=== PATIENT | male | born 1975 | race Hispanic/Latino ===

== ENCOUNTER 2018-12-12 14:02 | Observation (INO) | payer BC, OTHER ==
[~2018-12-12 14:02] MED LIST: Ketorolac Tromethamine 30 MG/ML VIAL ONE; Lidocaine 1% PF 5 ML VIAL ONE; Ondansetron PF 4 MG/2 ML Vial ONE; PROPOFOL 200 MG/20 ML VIAL ONE
[2018-12-12] MEDS ORDERED: Adacel (T-DAP) 0.5 ML SYRINGE ONE (14:11)
[2018-12-12] MEDS ORDERED: Morphine 4 MG/ML VIAL ONE (15:39)
[2018-12-12] MEDS ORDERED: Morphine 2 MG/ML SYRINGE ONE ×2 (15:39→19:57)
--- NOTE | 2018-12-12 15:39 | RAD ---
3 VIEWS LEFT HAND: Date: 12/12/18 HISTORY: Left thumb got stuck in machine at work and thumb came off. FINDINGS: Three views of the left hand shows amputation of the tip of the thumb just distal to the interphalang eal joint of the thumb through the distal phalanx. No degenerative changes are seen. IMPRESSION: Amputation of the thumb through the distal phalanx. POS: [facility]
[2018-12-12] MEDS ORDERED: Gentamicin 80 MG/2 ML VIAL ONE (17:49)
[2018-12-12] MEDS ORDERED: CEFAZOLIN 1 GM VIAL ONE (17:49)
[2018-12-12] MEDS ORDERED: Gentamicin Sulfate 80 MG in Premix Bag 1 BAG IVPB SCH (18:30)
[2018-12-12] MEDS ORDERED: Midazolam HCl 2 mg/2 ml Vial ONE ×2 (19:56→21:11)
[2018-12-12 20:55] LABS: Amphetamine Not Detected (NotDetected); Barbiturates Screen Not Detected (NotDetected); Benzodiazepine Screen Not Detected (NotDetected); Cocaine Metabolite Screen Not Detected (NotDetected); Medtox Control Line Valid? VALID (VALID); Medtox Reader # READER 4; Methadone Not Detected (NotDetected); Methamphetamine Not Detected (NotDetected); Opiate Screen Detected (NotDetected); Oxycodone Screen Not Detected (NotDetected); Phencyclidine (PCP) Not Detected (NotDetected); THC/Cannabinoid Screen Not Detected (NotDetected); Tricyclic Screen Not Detected (NotDetected)
[2018-12-12] MEDS ORDERED: Fentanyl 100 MCG/2 ML VIAL ONE (21:11)
[2018-12-12] MEDS ORDERED: Sodium Chloride 0.9% 30 ML ONE (21:42)
[2018-12-12] MEDS ORDERED: Bacitracin Zinc Ointment 30 gm TUBE ONE (21:54)
[2018-12-12] MEDS ORDERED: Betamet Acet/Betamet Na Ph 30 MG/5 ML VIAL ONE (21:54)
[2018-12-12] MEDS ORDERED: Bupivacaine PF 0.5% 30 ML VIAL ONE (21:54)
[2018-12-12] MEDS ORDERED: Ondansetron PF 4 MG/2 ML Vial IV PRN (23:07)
[2018-12-12] MEDS ORDERED: Morphine 4 MG/ML VIAL SLOW IVP PRN (23:07)
[2018-12-12] MEDS ORDERED: Bisacodyl 10 MG SUPP PR PRN (23:07)
[2018-12-12] MEDS ORDERED: traMADol HCl 50 MG TAB PO PRN (23:07)
[2018-12-12] MEDS ORDERED: Milk Of Magnesia 30 ML UDCUP PO PRN (23:07)
[2018-12-12] MEDS ORDERED: HYDROcodone/Acetaminophen 5/325 mg Tablet PO PRN (23:07)
[2018-12-12] MEDS ORDERED: Meperidine HCl/PF 25 MG/ML VIAL IM PRN (23:09)
[2018-12-12] MEDS ORDERED: Ketorolac Tromethamine 30 MG/ML VIAL IVP PRN (23:09)
[2018-12-12] MEDS ORDERED: Communication Order-Pharmacy FS SCH (23:15)
[2018-12-13] MEDS: Ketorolac Tromethamine 30 MG/ML VIAL IVP SCH ×3 (00:31→11:47)
[2018-12-13 02:20] VITALS: BMI 25.1
[2018-12-13] MEDS: Vancomycin HCl 1 GM in Premix Bag 1 BAG IVPB SCH ×2 (02:21→02:24)
[2018-12-13] MEDS ORDERED: Vancomycin HCl 1 GM in Premix Bag 1 BAG IVPB SCH ×2 (02:30→14:00)
[2018-12-13] MEDS: Acetaminophen/Codeine 30-300mg Tablet PO PRN ×2 (05:19→11:51)
[2018-12-13] MEDS ORDERED: TETANUS AND DIPHTHERIA TOX/PF 0.5 ML DISP.SYRIN IM SCH (09:00)
[2018-12-13] MEDS ORDERED: Aspirin 81 mg Enteric Coated Tablet PO SCH (09:00)
[2018-12-13 16:47] VITALS: BP 108/68; TEMP 98.8
--- NOTE | 2018-12-15 14:02 | OP ---
DATE OF PROCEDURE: 12/12/2018 PREOPERATIVE DIAGNOSES: 1. Open amputation with distal phalanx fracture base of the nail bed with the amputation line actually going through the germinal matrix and slightly more proximal palmarly. 2. Marked contamination with string sign in the amputated part. PROCEDURES PERFORMED: 1. Debridement of material associated with open fracture. 2. Debridement of wound. 3. Creation of fasciocutaneous flap. 4. Full thickness skin graft harvested from the amputated part after it was cleaned and debrided and thinned to almost a partial thickness graft. 5. Application of short-arm splint. INDICATIONS: Patient was involved in an accident with a saw while at work. Although he reports this is worker's compensation, he came in with a digit completely amputated with a fracture seen on the radiographs at the base of the distal phalanx which was on the attached side 4 mm in width. He had flexion and extension of this attached part, he had marked contamination of the distal part and thus it was felt that completion of amputation with coverage after debridement would be indicated more so than replantation. DESCRIPTION OF PROCEDURE: After successful general LMA technique, the limb was prepped and draped. Time-out was done appropriately. We then began to inspect the wound and found that the patient had indeed marked contamination of the amputated part in spite three different solutions, we could only minimally clean, so we could not replant this and the patient had a small string side in one arterial in the vascular tree. For this reason, it was decided to debride the material associated with open fracture but not shorten the bone, created fasciocutaneous flap of fat that could be rotated dorsally approximately 5 to 6 mm to connect to the fascia over the bone, and then put a skin graft harvested from the amputated part. This was done in sequence listed above after debridement of material associated with open fracture to include curette, tenotomy scissors, Adson's, 11 blade knife, and high-speed 3 L normal saline and Pulsavac with antibiotics inside, we cleaned the retained part. The distal part/amputated part, used 3 different solutions of 1/3 normal saline with antibiotics inside to 1/3 Betadine, and 1/3 chlorhexadine. Each went to a differential soaking of 15 minutes which was then thinned and cut to appropriate size to match up the reconstructed wound. Once this was done, the patient had no evidence of contamination whatsoever in the still attached portion of the thumb. We covered all bone ends after we had debrided any material associated with the open fracture. The open treatment of fracture was covered with this flap. Fasciocutaneous flap had good circulation, and then we finished harvesting, the triple solution cleaned, amputated part of skin on the palmar aspect in its midportion and then thinned this as much as possible where there was only minimal epidermis left with two slits made. We then placed two bolstered sutures with 3-0 nylon, two dorsal, two palmar with one set radial, one set ulnar to the midline. We then tied this to hold the graft in place and then secured the graft with a running 5-0 synthetic suture. Then, the digit was pink, we could see blood with tourniquet deflated underneath the graft site, two slits were given excellent drainage. We then bolstered this by placing a sleeve the same sized with [address] around circumferentially greater in each diameter with the . The wound was now completely covered, there was no donor site from the amputated part. It was cleaned before it was attached, then it was bolstered, bacitracin and normal saline, a mineral oil soaked gauze, and we tied the two individual 3-0 nylons in a crisscrossing pattern and was well secured with bolster. Then, we placed a soft tissue dressing, 4x4s, a Kerlix on the amputated thumb part. Followed this with a thumb spica splint and then the patient left the operating room with no evidence of anesthetic or operative complication. Job ID: [id number]
--- NOTE | 2018-12-22 05:42 | PQF ---
[facility] POST DISCHARGE CLINICAL DOCUMENTATION IMPROVEMENT CLARIFICATION FORM l Todays Date: 12/03/18 l Patients Name ADRIENNE ZURITA l l Admit Date 12/12/18 l Disch Date 12/12/18 Pharmaceutical Development Technician Name Toribio Jimenez Email: [email or web address] Cell: [phone] To be completed by Pharmaceutical Development Technician: Present Clinical Indicators - Signs / Symptoms Results and Location in Medical Record [ ] Documentation of: [ ] [ ] Documentation of: [ ] [ ] Documentation of: [ ] [ ] Documentation of: [ ] [ ] Risks [ ] [ ] [ ] Treatment [ ] Distal Transphalangeal amputation of Left thumb Query for area (sq .cm) of skin graft [ ] [ ] To be completed by Physician: MIKE LO The documentation in this patients record requires clarification to ensure coding compliance and accuracy. Check the appropriate box and include in your discharge summary. [ ] [ ] [ ] [ ] Please check this box if this does not apply to this patient [ ] Unable to determine [ ] Other diagnosis: Review the following information and exercise your independent professional judgment in responding to the clarification. Based upon the clinical findings, risk factors, and treatment, please clarify if you are treating one of the above probable or suspected diagnoses. Physician Signature: Date Time MTDD
== END 2018-12-13 17:37 | disposition home or self-care (01) ==
LOC: ERS 14:02 → SDC/OP 19:13 → SURG A 23:59
PROVIDERS: ADMIT Orthopaedic Surgery Hand Surgery; ATTEND Orthopaedic Surgery Hand Surgery
PROC: 0JXK0ZZ Transfer Left Hand Subcutaneous Tissue and Fascia, Open Approach (ICD-10-PCS; principal; 2018-12-12)
PROC: 0HRGX73 Replacement of Left Hand Skin with Autologous Tissue Substitute, Full Thickness, External Approach (ICD-10-PCS; 2018-12-13)
PROC: 0PBV0ZZ Excision of Left Finger Phalanx, Open Approach (ICD-10-PCS; 2018-12-13)
DX: S68.512A Complete traumatic transphalangeal amputation of left thumb, initial encounter (principal); K21.9 Gastro-esophageal reflux disease without esophagitis; J45.909 Unspecified asthma, uncomplicated; Z79.2 Long term (current) use of antibiotics; Z79.899 Other long term (current) drug therapy; W27.0XXA Contact with workbench tool, initial encounter; Y99.0 Civilian activity done for income or pay
CPT/HCPCS: 80306; 90471; 90686; 90715; 96365; 96366; 96367; 96374; 96375; 96376; G0008; G0378; J0690; J0702; J1580; J1885; J2001; J2250; J2270; J2405; J2704; J3010; J3370; J3490; S0020

== ENCOUNTER 2019-02-13 09:39 | Outpatient (CLI) | payer OTHER ==
--- NOTE | 2019-02-13 11:48 | MRI ---
MR of the left wrist without contrast INDICATION: Traumatic tear of TFCC of left wrist COMPARISON: Left hand radiographs dated December 12, 2018 TECHNIQUE: Multiplanar multisequence MR images were obtained of the left wrist without IV contrast. FINDINGS: Motion artifact heavily degrades image detail. There is mild ulnar positive configuration at the DRUJ. There is a large central perforation of the T FC. There is abnormal edema involving the proximal aspects of the triquetrum, lunate and the distal aspects of the ulna. 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 The scapholunate and lunotriquetral ligaments are intact. Visualized extensor tendons appear intact. The carpal tunnel and its contents are normal appearing. The FCU and FCR tendons are intact. The ulnar neural vasculature appears within normal limits. 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
--- NOTE | 2019-02-13 12:07 | RAD ---
MRI SAFETY ABBASI SINUS: Date: 02/13/19 PROVIDED CLINICAL HISTORY: History of metal in eye. FINDINGS: There is no evidence for metallic foreign body in the region of the orbits. IMPRESSION: As above. POS: OFF
== END 2019-02-13 09:40 | disposition home or self-care (01) ==
LOC: BICMRI 09:39
PROVIDERS: ATTEND Orthopaedic Surgery Hand Surgery
DX: S63.592A Other specified sprain of left wrist, initial encounter (principal); M92.212 Osteochondrosis (juvenile) of carpal lunate [Kienbock], left hand
CPT/HCPCS: 70210

== ENCOUNTER 2019-03-23 09:08 | Outpatient (CLI) | payer OTHER ==
[2019-03-23 14:36] LABS: #Basophils 0.1 thou/uL (0.0-0.2); #Eosinphils 0.2 thou/uL (0.0-0.7); #Lymphocytes 1.6 thou/uL (1.20-3.40); #Monocytes 0.4 thou/uL (0.11-0.59); #Neutrophils 2.3 thou/uL (1.40-6.50); %Basophils 1.1 % (0.0-1.0); %Eosinophils 4.1 % (0.0-10.0); %Lymphocytes 35.4 % (21.0-51.0); %Neutrophils 51.4 % (42.0-75.0); Mean Corpuscular HGB CONC 34.6 g/dL (32.0-36.0); Mean Corpuscular Hemoglobin 32.4 pg (27.0-31.0); Mean Corpuscular Volume 93.8 fL (78.0-98.0); Mean Platelet Volume 7.5 fL (7.4-10.4); Platelet Count 240 thou/uL (130-400); RBC Distribution Width 11.9 % (11.5-14.5); Red Blood Cell (RBC) Count 4.92 mill/uL (4.70-6.10); White Blood Cell (WBC) Count 4.4 thou/uL (4.8-10.8)
== END 2019-03-23 09:09 | disposition home or self-care (01) ==
LOC: LABBT 09:08
PROVIDERS: ATTEND Orthopaedic Surgery Hand Surgery
DX: Z01.812 Encounter for preprocedural laboratory examination (principal); S63.592A Other specified sprain of left wrist, initial encounter
CPT/HCPCS: 85025

== ENCOUNTER 2019-03-24 09:19 | Day surgery (SDC) | payer OTHER ==
[2019-03-23 14:02] VITALS: BMI 25.4
[2019-03-24] MEDS ORDERED: Midazolam HCl 2 mg/2 ml Vial ONE ×2 (11:45→12:52)
[2019-03-24] MEDS ORDERED: Fentanyl 100 MCG/2 ML VIAL ONE ×2 (11:45→12:52)
[2019-03-24] MEDS ORDERED: Bupivacaine PF 0.5% 30 ML VIAL ONE (12:39)
[2019-03-24] MEDS ORDERED: Bacitracin Zinc Ointment 30 gm TUBE ONE (12:39)
[2019-03-24] MEDS ORDERED: Sodium Chloride 0.9% 10 ML ONE (12:39)
[2019-03-24] MEDS ORDERED: EPINEPHrine 1 MG/ML AMP ONE (12:41)
--- NOTE | 2019-03-24 16:40 | RAD ---
XR Wrist 3 Lt View STANDARD History: Traumatic fibrocartilage tear Comparison: None Findings: Multiple intraoperative spot images were obtained. Impression: Fluoroscopy for surgical purposes.
[2019-03-24] MEDS ORDERED: Ketorolac Tromethamine 30 MG/ML VIAL ONE (17:11)
--- NOTE | 2019-03-24 23:28 | OP ---
DATE OF PROCEDURE: 03/24/2019 PREOPERATIVE DIAGNOSES: 1. Left wrist triangular fibrocartilage tear, degenerative. 2. Ulnocarpal impingement. 3. Lunotriquetral ligament capsule tear. 4. Synovitis, wrist. POSTOPERATIVE FINDINGS: 1. Left wrist triangular fibrocartilage tear, degenerative. 2. Ulnocarpal impingement. 3. Lunotriquetral ligament capsule tear. 4. Synovitis, wrist. 5. Evidence of ulnar abutment on the ulnar aspect of the lunate, radial aspect of the triquetrum with the volar 1/3 of the lunotriquetral ligament torn at its capsuloligamentous reflection and some distraction of the joint. 6. Triangular fibrocartilage tear, central and radial with almost 1 cm length and already 3 mm width making it irreparable at this corner of the distal radioulnar joint. 7. Marked synovitis, all compartments of the wrist. PROCEDURES PERFORMED: 1. Arthroscopic chondroplasty, lunate and triquetrum. 2. Arthroscopic synovectomy, left wrist. 3. Triangular Fibrocartilage debridement with tear resection, arthroscopic. 4. Arthrotomy with capsule/ligament repair of lunotriquetral ligament. 5. Rayhack shortening osteotomy of the ulna. 6. C-arm fluoroscopy. SPECIMEN SENT: None. ESTIMATED BLOOD LOSS: 20 mL. TOURNIQUET TIME: 100 minutes. DESCRIPTION OF PROCEDURE: After successful general endotracheal anesthesia, the limb was prepped and draped. C-arm brought to the field. We identified the appropriate wrist, and with this matched the history and physical and consent. We then placed the wrist in traction, after prepping and draping, set the arthroscope 2.0 arthroscope size on 30 of flow and 40 of pressure and established the 3, 4, 6U and 6R portals. Panoramic view reveal so much synovitis that we had do a synovectomy to see the structures. Once this was accomplished throughout the entire wrist, we had done the synovectomy. We then visualized via arthroscope a chondroplasty tear with chondral elements occupied the dorsal 1/2 of it, but the palmar 1/2 was actually capsuloligamentous, so we felt repair would be indicated. The patient had the TFCC debrided to a stable rim where it from 1 cm long, 2 mm wide to 12 mm long and 4 mm wide. There was no other unsmoothed edges. We had excellent outflow and visualization of outflow. We then finished the chondroplasty and know that there was a portion that was capsuloligamentous via probing, so we felt it would be best to remove the arthroscope, converted to open over the 6R we did this, carried through skin and subcutaneous tissue, over the retinaculum, retracted the tendon and then opened the capsule and exposed the tear. We had finished debriding the area for transportation of the tear from the lunate and capsule of the wrist to the ulna and then now finished it with an anchor with the sutures spaced almost 3-4 mm apart and tied with appropriate tension. Now, before we tied it, we had placed the C-arm and the ankle was in excellent position and the K-wire with the joint compressed was in excellent position in frontal and sagittal plane. We then tied the suture and the patient had a bulky dressing applied with a sugar-tong splint and left the operating room without evidence of anesthetic or operative complication. Job ID: [id number]
== END 2019-03-24 19:10 | disposition home or self-care (01) ==
LOC: SDC 09:19
PROVIDERS: ATTEND Orthopaedic Surgery Hand Surgery
PROC: 0RQP0ZZ Repair Left Wrist Joint, Open Approach (ICD-10-PCS; principal; 2019-03-24)
PROC: 3E0T3BZ Introduction of Anesthetic Agent into Peripheral Nerves and Plexi, Percutaneous Approach (ICD-10-PCS; principal; 2019-03-24)
PROC: 0MB64ZZ Excision of Left Wrist Bursa and Ligament, Percutaneous Endoscopic Approach (ICD-10-PCS; principal; 2019-03-24)
DX: S63.592A Other specified sprain of left wrist, initial encounter (principal); M25.832 Other specified joint disorders, left wrist; M92.212 Osteochondrosis (juvenile) of carpal lunate [Kienbock], left hand; M65.88 Other synovitis and tenosynovitis, other site; G58.8 Other specified mononeuropathies; J45.909 Unspecified asthma, uncomplicated; Z89.012 Acquired absence of left thumb; X58.XXXA Exposure to other specified factors, initial encounter; Y99.0 Civilian activity done for income or pay
CPT/HCPCS: 76000; C1713; J0171; J0690; J1885; J2250; J3010; J3490; S0020

== ENCOUNTER 2022-11-12 08:00 | Outpatient (CLI) | payer OTHER ==
[2022-11-12] MEDS ORDERED: Iopamidol-370 76% 500 ML 1 ML ONE (10:31)
== END 2022-11-12 08:01 | disposition home or self-care (01) ==
LOC: BICCT 08:00
PROVIDERS: ATTEND Physician Assistant Medical
DX: K57.30 Diverticulosis of large intestine without perforation or abscess without bleeding (principal); K21.9 Gastro-esophageal reflux disease without esophagitis; R10.32 Left lower quadrant pain; K59.00 Constipation, unspecified; K63.89 Other specified diseases of intestine
CPT/HCPCS: 74177; Q9967

== ENCOUNTER 2023-06-30 18:08 | Emergency (ER) | payer BC, OTHER ==
[2023-06-30 19:26] LABS: Hematocrit 48.6 % (42.0-52.0); Hemoglobin 16.7 g/dL (14.0-18.0); Manual Diff?? YES; Mean Corpuscular HGB CONC 34.4 g/dL (32.0-36.0); Mean Corpuscular Hemoglobin 31.4 pg (27.0-31.0); Mean Corpuscular Volume 91.4 fl (78.0-98.0); Mean Platelet Volume 9.2 fL (7.4-10.4); Platelet Count 215 10x3/uL (130-400); RBC Distribution Width 12.4 % (11.5-14.5); Red Blood Cell (RBC) Count 5.32 mill/uL (4.70-6.10); White Blood Cell (WBC) Count 3.1 10x3/uL (4.8-10.8)
[2023-06-30 19:35] LABS: Delete Auto Diff?? YES
[2023-06-30 19:43] LABS: Bacteria/HPF None Seen HPF (None Seen); Bilirubin Negative (Negative); Blood, Urine Trace (Negative); CAUTI Indications for Culture Pelvic or flank pain; Clarity Clear (Clear); Glucose, Urine (Dipstick) Normal (Negative); Ketone, Urine Negative (Negative); Leukocyte Negative Leu/uL (Negative); Nitrite Negative (Negative); Protein, Urine (Dipstick) Negative (Neg-Trace); RBC/HPF 0-3 HPF (0-3); Specific Gravity, Urine 1.004 (1.002-1.036); Squamous Epithelial None Seen HPF (0-3); Urobilinogen Normal mg/dL (Less than 2); WBC/HPF None Seen HPF (0-3); pH, Urine 5.5 (5.0-9.0)
[2023-06-30 19:50] LABS: Urine Culture Reflex No No
[2023-06-30 19:55] LABS: ALT (SGPT) 36 U/L (8-55); AST (SGOT) 34 U/L (5-34); Albumin 4.1 g/dL (3.5-5.0); Alkaline Phosphatase 74 U/L (40-110); Anion Gap 11 mmol/L (10-20); BUN (Urea Nitrogen) 9 mg/dL (8.9-20.6); Calc. Creatinine Clearance 0 mL/min (70-130); Calcium 8.7 mg/dL (7.8-10.44); Carbon Dioxide 28 mmol/L (22-29); Chloride 101 mmol/L (98-107); Estimated GFR 109; Globulin 3.2 g/dL (2.4-3.5); Glucose 92 mg/dL (70-105); Potassium 4.2 mmol/L (3.5-5.1); Protein, Total 7.3 g/dL (6.0-8.3); Sodium 136 mmol/L (136-145)
[2023-06-30 20:01] LABS: Band 8 % (5-11); CellaVision Operator ID LAB.KB; Eosinophils 2 % (0-10); Large Platelets 5.9 % (0-5); Lymphocytes 22 % (21-51); Monocytes 25 % (0-10); Neutrophil 30 % (42-75); Platelet Adequacy Comment Platelets Normal; RBC Morphology Within Normal Limits; Reactive Lymphocytes 10 % (0-10); Smudge Cells 14.9 %; Total Cell Count 101
== END 2023-06-30 19:52 | disposition home or self-care (01) ==
LOC: ERS 18:08
DX: K52.9 Noninfective gastroenteritis and colitis, unspecified (principal)
CPT/HCPCS: 36415; 80053; 81001; 85025; 99284